=== PATIENT | female | born 1990 | race African-American/Black ===

== ENCOUNTER 2020-03-10 19:09 | Emergency (ER) | payer OTHER ==
[~2020-03-10] VITALS: Ht 144.8 cm; Wt 99.8 kg
[~2020-03-10 19:09] MED LIST: AMOXICILLIN 50500 M1 PO; APAP/CODEINE ELI5 M1 OR; DEPAKOTE 250MG250 M1 PO; DEPAKOTE500 MG PO; ERYTHROMYCIN E3.5 G3 OPHTHALMIC; LEVAQUIN 500 M500 MG PO; PENICILLIN V P500 MG PO; SERAQUIL PO; SEROQUEL 25 MG25 M1 PO; SEROQUEL XR 30300 M1 PO; TESSALON PERLE100 MG PO; ZPAK PO
[2020-03-10 20:06] LABS: ABSOLUTE NEUTROPHILS 16.2 thou/uL (1.4-8.2); BASOPHILS 0.4 % (0.0-2.0); EOSINOPHILS 0.1 % (0.0-3.0); HEMATOCRIT 25.6 % (37.0-47.0); LYMPHOCYTES 10.6 % (24.0-44.0); MCH 21.8 pg (26.0-34.0); MCHC 31.5 g/dL (28.0-37.0); MCV 69.1 fL (80.0-100.0); MONOCYTES 3.6 % (1.0-8.0); PLATELET COUNT 561 thou/uL (150-400); POLYS 85.3 % (36.0-66.0); RDW 20.8 % (10.5-14.5); WBC 19.1 thou/uL (4.0-11.0)
[2020-03-10 20:34] LABS: PLATELET ESTIMATE INCREASED
[2020-03-10 20:37] LABS: CALCIUM 9.7 mg/dL (8.5-10.1); CREATININE 0.8 mg/dL (0.6-1.0)
[2020-03-10 20:43] LABS: ALBUMIN 2.5 g/dL (3.4-5.0); TOTAL BILIRUBIN 0.7 mg/dL (<0.1-1.0); TOTAL PROTEIN 10.3 g/dL (6.4-8.2)
[2020-03-10 20:46] LABS: ANISOCYTOSIS 2+; HYPOCHROMASIA 2+; LARGE PLATELETS OCCASIONAL; MICROCYTES 2+
[2020-03-10 20:47] LABS: TARGET CELLS OCCASIONAL
[2020-03-11 02:14] VITALS: BP 117/80
== END 2020-03-11 02:15 | disposition short-term general hospital (02) ==
LOC: ER 19:09
PROVIDERS: Emergency Medicine
DX: N83.202 Unspecified ovarian cyst, left side (principal); D72.829 Elevated white blood cell count, unspecified

== ENCOUNTER 2020-09-01 18:36 | Emergency (ER) | payer OTHER ==
[~2020-09-01] VITALS: Ht 144.8 cm; Wt 79.4 kg
[2020-09-01] MEDS ORDERED: LEVO-T25 MCG PO (18:57)
[2020-09-01] MEDS ORDERED: BLACK COHOSH540 MG PO (18:57)
[2020-09-01 19:56] LABS: CALCIUM 9.1 mg/dL (8.5-10.1); CREATININE 0.8 mg/dL (0.6-1.0); POTASSIUM 3.7 mmol/L (3.5-5.1)
[2020-09-01 19:58] LABS: ABSOLUTE NEUTROPHILS 8.1 thou/uL (1.4-8.2); BASOPHILS 0.9 % (0.0-2.0); EOSINOPHILS 1.7 % (0.0-3.0); HEMOGLOBIN 9.6 gm/dL (12.0-15.0); LYMPHOCYTES 22.7 % (24.0-44.0); MCH 25.2 pg (26.0-34.0); MCHC 32.1 g/dL (28.0-37.0); MCV 78.7 fL (80.0-100.0); PLATELET COUNT 364 thou/uL (150-400); POLYS 69.7 % (36.0-66.0); RBC 3.82 mil/uL (4.20-5.00); RDW 18.1 % (10.5-14.5); WBC 11.5 thou/uL (4.0-11.0)
[2020-09-01 20:01] LABS: ALBUMIN 3.1 g/dL (3.4-5.0); MAGNESIUM 1.9 mg/dL (1.8-2.4); TOTAL BILIRUBIN 0.5 mg/dL (0.2-1.0); TOTAL PROTEIN 9.3 g/dL (6.4-8.2)
[2020-09-01 20:01] LABS: URINE BILIRUBIN NEGATIVE (Negative); URINE BLOOD NEGATIVE (Negative); URINE CLARITY CLEAR; URINE COLOR YELLOW; URINE GLUCOSE-RANDOM* NEGATIVE (Negative); URINE KETONES NEGATIVE (Negative); URINE LEUKOCYTES-REFLEX TRACE (Negative); URINE NITRITE-REFLEX NEGATIVE (Negative); URINE PROTEIN (DIPSTICK) NEGATIVE (Negative); URINE UROBILINOGEN 0.2 E.U./dl (0.2-1.0)
[2020-09-01 20:14] LABS: ANISOCYTOSIS 2+
[2020-09-01 20:19] LABS: MICROCYTES 1+
[2020-09-01 21:10] VITALS: BP 148/87
== END 2020-09-01 21:10 | disposition home or self-care (01) ==
LOC: ER 18:36
PROVIDERS: Physician Assistant
DX: R53.1 Weakness (principal); D53.9 Nutritional anemia, unspecified; R59.1 Generalized enlarged lymph nodes; Z79.899 Other long term (current) drug therapy

== ENCOUNTER 2020-10-14 07:24 | Emergency (ER) | payer OTHER ==
[~2020-10-14] VITALS: Ht 154.9 cm; Wt 83.9 kg
[~2020-10-14 07:24] MED LIST changes: +BLACK COHOSH540 MG PO; +LEVO-T25 MCG PO
--- NOTE | 2020-10-14 08:06 | EKG ---
[facility] [place] [address] ELECTROCARDIOGRAM REPORT Name: YELENA BUNN Room #: PRE [facility]#: [id number] Admission: Attend Phys: Discharge: Date of : 88 Report #: [id number] THIS REPORT FOR: cc: [facility] - Clinic physician unknown [facility] - Clinic physician unknown Arsen Smith MD ~ THIS REPORT FOR: //name// [facility] ED Test Date: 2020-10-14 Test Time: 08:03:39 Pat Name: YELENA BUNN Department: Room: Gender: F [employer]: : 1990 Requested By: Paras Bunn Order Number: [id number] MD: Arsen Smith Measurements Intervals [place] Rate: 103 P: 240 AR: 139 QRS: 33 QRSD: 91 T: 78 QT: 333 QTc: 436 Interpretive Statements Sinus or ectopic atrial tachycardia Low voltage, precordial leads Compared to ECG 02/16/2016 05:54:18 Low QRS voltage now present Electronically Signed On 10-14-2020 8:06:41 [employer] by Arsen Smith [email or web address] <ELECTRONICALLY SIGNED> By: Arsen Smith MD 10/14/20805 2 2 Arsen Smith MD /AMBER
[2020-10-14 08:18] LABS: HEMATOCRIT 35.2 % (37.0-47.0); MCH 24.7 pg (26.0-34.0); MCHC 31.4 g/dL (28.0-37.0); MCV 78.8 fL (80.0-100.0); RBC 4.46 mil/uL (4.20-5.00); RDW 18.5 % (10.5-14.5); WBC 13.1 thou/uL (4.0-11.0)
[2020-10-14] MEDS ORDERED: DIVALPROEX SOD500 M1 PO (08:28)
[2020-10-14] MEDS ORDERED: QUETIAPINE FUMA50 MG PO (08:29)
[2020-10-14] MEDS ORDERED: QUETIAPINE FUM400 MG PO (08:29)
[2020-10-14 08:32] LABS: CALCIUM 9.4 mg/dL (8.5-10.1); MAGNESIUM 1.9 mg/dL (1.8-2.4); POTASSIUM 3.1 mmol/L (3.5-5.1)
[2020-10-14 08:35] LABS: URINE BILIRUBIN NEGATIVE (Negative); URINE BLOOD NEGATIVE (Negative); URINE CLARITY CLEAR; URINE COLOR YELLOW; URINE GLUCOSE-RANDOM* NEGATIVE (Negative); URINE KETONES NEGATIVE (Negative); URINE LEUKOCYTES-REFLEX NEGATIVE (Negative); URINE NITRITE-REFLEX NEGATIVE (Negative); URINE PROTEIN (DIPSTICK) NEGATIVE (Negative); URINE UROBILINOGEN 0.2 E.U./dl (0.2-1.0)
[2020-10-14] MEDS ORDERED: DEPAKOTE125 MG PO (10:17)
[2020-10-14 10:19] VITALS: BP 114/66
== END 2020-10-14 10:19 | disposition home or self-care (01) ==
LOC: ER 07:24
PROVIDERS: Emergency Medicine
DX: U07.1 COVID-19 (principal); R56.9 Unspecified convulsions; Z79.899 Other long term (current) drug therapy

== ENCOUNTER → 2021-09-13 | Emergency (ER) | payer OTHER ==
[~2021-09-13] VITALS: Ht 167.6 cm; Wt 101.2 kg
[~2021-09-13] MED LIST changes: +CEFPODOXIME PR200 M1 PO; +DEPAKOTE125 MG PO; +DIVALPROEX SOD500 M1 PO; +MUCINEX600 MG PO; +QUETIAPINE FUM300 MG PO; +QUETIAPINE FUM400 MG PO; +QUETIAPINE FUMA50 MG PO
[2021-09-13 06:38] VITALS: BP 141/70
== END ==
LOC: ER 04:35
DX: R05.9 Cough, unspecified (principal); Z20.822 Contact with and (suspected) exposure to COVID-19; Z79.899 Other long term (current) drug therapy